=== PATIENT | female | born 1960 | race Two or more races ===

== ENCOUNTER 2018-05-18 14:59 | Emergency (ER) | payer OTHER ==
[~2018-05-18] VITALS: Ht 162.6 cm; Wt 82.1 kg
[2018-05-18 15:09] VITALS: Ht 162.6 cm; Wt 82.1 kg
[2018-05-18 17:00] VITALS: BP 141/79
== END 2018-05-18 17:00 | disposition home or self-care (01) ==
LOC: ED 14:59
DX: M17.12 Unilateral primary osteoarthritis, left knee (principal); M25.562 Pain in left knee; M25.462 Effusion, left knee; I10 Essential (primary) hypertension; E11.9 Type 2 diabetes mellitus without complications